=== PATIENT | female | born 1930 | race Caucasian/White ===

== ENCOUNTER → 2016-12-17 | Day surgery (SDC) | payer MEDICARE ==
[~2016-12-17] VITALS: Ht 157.5 cm; Wt 60.1 kg
[~2016-12-17] MED LIST: ARTHTAB5 PO; CALTTAB10 PO; CEPH-459 PO; CHLORHEXIDINE GLUCONATE 2 % 1 PACK (2 CLOTHS) TOPICAL PRN; DO NOT ADM ANY ANTICOAGULANT DRUGS PRN; FLOR250C PO; INSULIN HUMAN REGULAR 1,000 UNITS/10 ML VIAL SQ PRN; IOHEXOL 350 MG/ML 50 ML BTL (for RAD DIAG) ONE; LACTATED RINGER'S 1000 ML IV PRN; LEVO.025 PO; LYRI100C PO; METOPROLOL TARTRATE 25 MG TAB PO PRN; ONDANSETRON HCL 4 MG/2 ML VIAL IV PUSH PRN; POVIDONE IODINE 5% (ANTISEPSIS KIT) 4 APPLICATIONS EACH NARE PRN; PREG100 PO; PROPOFOL 200 MG/20 ML AMP IV ONE; SIMV20TA PO; SODIUM CHLORID 0.9% 500 ML IV PRN; SYNT25TA PO; WARF1TAB PO; WARF4TAB52 PO; [UNRECOGNIZED DRUG - CODE]; ceFAZolin 1,000 MG/NS 100 ML IV SCH; ePHEDrine/NS 25 MG/5 ML SYR IV ONE; oxyCODONE/ACETAMINOPHEN 5 MG/325 MG TAB PO PRN
[2016-12-17 08:40] VITALS: BP 165/69; PULSE 79; RESP 20; TEMP 98.8; O2SAT 96
[2016-12-17 09:00] LABS: HEMATOCRIT 40.5 % (35.0-46.0); MEAN CORPUSCULAR HEMOGLOBIN 29.3 PG (27.0-34.0); MEAN CORPUSCULAR HGB CONC 32.6 % (32.0-36.0); PLATELET COUNT 232 TH/MM3 (150-450); RED CELL DISTRIBUTION WIDTH 14.6 % (11.6-17.2); WHITE BLOOD COUNT 5.2 TH/MM3 (4.0-11.0)
[2016-12-17 09:01] LABS: HEMO FLAGS AUTO DIFF
[2016-12-17 09:42] LABS: EOSINOPHILS 4 % (0-4); NEUTROPHIL # MANUAL DIFF 3.3 TH/MM3 (1.8-7.7); PLATELET ESTIMATE SMEAR NORMAL (NORMAL); PLATELET MORPHOLOGY NORMAL (NORMAL); POLYS (SEG NEUTROPHILS) 63 % (16-70); SCAN/DIFF FINAL DIFF MANUAL; WBC DIFF SAMPLE 100
[2016-12-17 10:24] LABS: INTERNATIONAL NORMALIZED RATIO 1.1 RATIO
--- NOTE | 2016-12-17 11:46 | PD.OP ---
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 Procedure in detail: Patient was brought to the operating room suite and placed supine on the cystoscopy table. She was then placed under general anesthesia. She was then repositioned in the dorsolithotomy position and prepped and draped in normal sterile fashion. After appropriate timeout was undertaken I proceeded with cystoscopic evaluation utilizing the rigid cystoscope with the 30 lens a 20 Icelandic sheath. The right orifice was in correct anatomic position effluxing clear urine. The left orifice had the left ureteral stent protruding from it. There were no bladder mucosal lesions, calculi or diverticula formation. The left stent was grasped with flexible forceps and easily removed. Next a sensor 0.035 wire was easily advanced up the left ureter under fluoroscopic guidance. A 6 [place]ic open-ended ureteral catheter was then advanced over the wire and the wire withdrawn. A left retrograde study was performed to outline the collecting system. Guidewire was introduced through the open-ended catheter and this was exchanged for a 22 cm 6 [place]ic terminal operations manager [place] stent. Once the stent was in proper position the trailing string was removed. There was small amount of bloody urine noted occlusion of the procedure thus decision was made to pass a Carroll catheter. A 16 Icelandic 10 cc Carroll catheter was easily placed and connected to gravity drainage. The patient tolerated the procedures without, patient's was transferred to the PACU in satisfactory condition. Sanjay Gonzalez MD Dec 17, 2016 11:46
[2016-12-17 13:10] VITALS: BP 139/59; PULSE 80; RESP 18; TEMP 98; O2SAT 96
== END | disposition home or self-care (01) ==
LOC: HSDC 07:56
PROVIDERS: ATTEND Urology
DX: N13.5 Crossing vessel and stricture of ureter without hydronephrosis (principal); I10 Essential (primary) hypertension; J45.909 Unspecified asthma, uncomplicated; M81.0 Age-related osteoporosis without current pathological fracture; E03.9 Hypothyroidism, unspecified; Z86.73 Personal history of transient ischemic attack (TIA), and cerebral infarction without residual deficits; Z86.711 Personal history of pulmonary embolism; Z85.3 Personal history of malignant neoplasm of breast; Z85.43 Personal history of malignant neoplasm of ovary
CPT/HCPCS: 52332; 74420; 85007; 85027; 85610; C1769; J3010; Q9967

== ENCOUNTER → 2017-11-18 | Day surgery (SDC) | payer MEDICARE ==
[~2017-11-18] VITALS: Ht 157.5 cm; Wt 60.3 kg
[~2017-11-18] MED LIST changes: -ARTHTAB5 PO; -CALTTAB10 PO; +DEXAMETHASONE SOD PHOS 4 MG/ML VIAL IV ONE; -FLOR250C PO; -INSULIN HUMAN REGULAR 1,000 UNITS/10 ML VIAL SQ PRN; -IOHEXOL 350 MG/ML 50 ML BTL (for RAD DIAG) ONE; -LEVO.025 PO; +LIDOCAINE HCL 1% PF 5 ML SYRINGE OTHER ONE; +ONDANSETRON HCL 4 MG/2 ML VIAL IV ONE; -PREG100 PO; -PROPOFOL 200 MG/20 ML AMP IV ONE; -WARF1TAB PO; +ceFAZolin INJ 1,000 MG VIAL IV ONE; -ePHEDrine/NS 25 MG/5 ML SYR IV ONE; +ePHEDrine/NS 25 MG/5 ML SYRINGE IV ONE
[2017-11-18 11:39] LABS: AUTOMATED NEUTROPHIL # 3.2 TH/MM3 (1.8-7.7); BASOPHIL % 0.7 % (0.0-2.0); EOSINOPHIL # 0.1 TH/MM3 (0-0.4); EOSINOPHIL % 2.4 % (0.0-4.0); HEMATOCRIT 40.6 % (35.0-46.0); HEMOGLOBIN 13.6 GM/DL (11.6-15.3); LYMPH % 28.9 % (9.0-44.0); LYMPHOCYTE # 1.5 TH/MM3 (1.0-4.8); MEAN CELL VOLUME 90.7 FL (80.0-100.0); MEAN CORPUSCULAR HEMOGLOBIN 30.5 PG (27.0-34.0); MEAN CORPUSCULAR HGB CONC 33.6 % (32.0-36.0); MEAN PLATELET VOLUME 8.2 FL (7.0-11.0); MONO % 6.9 % (0.0-8.0); MONOCYTE # 0.4 TH/MM3 (0-0.9); NEUT % 61.1 % (16.0-70.0); PLATELET COUNT 220 TH/MM3 (150-450); RED BLOOD COUNT 4.47 MIL/MM3 (4.00-5.30); RED CELL DISTRIBUTION WIDTH 13.6 % (11.6-17.2); WHITE BLOOD COUNT 5.2 TH/MM3 (4.0-11.0)
--- NOTE | 2017-11-18 12:35 | PD.OP ---
Operative Report Date of Surgery: November 18, 2017 Preoperative Diagnosis: (1) Ureteral obstruction, left Postoperative Diagnosis: (1) Ureteral obstruction, left Procedure: Cystoscopy, left retrograde pyelogram and left ureteral stent exchange Anesthesia: General Surgeon: Sanjay Gonzalez Bending Roll Hand(s): None Operation and Findings: Indication for procedures: Case of a pleasant 87-year-old female with history chronic left ureteral obstruction who status post Boari flap reconstruction who presents now for her annual stent exchange. Patient reports that her present stent has not given her any problems over the past year. Operative procedure in detail: Patient was brought to the operating room suite placed supine on the cystoscopy table. She was then placed under general anesthesia. She was then repositioned in the dorsolithotomy position and prepped and draped in normal sterile fashion. After an appropriate timeout was undertaken I proceeded with cystoscopic evaluation. Initially the rigid cystoscope with the 20 Vietnamese sheath and obturator was gently inserted without difficulty. The obturator was then exchanged for the 30 lens. The previously placed left ureteral stent could be seen protruding from the newly created left ureteral orifice. I then proceeded to pass a sensor 0.035 wire alongside the stent under fluoroscopic guidance. The wire was fully advanced up into the left renal pelvis. Next a flexible grasper was utilized and the left stent removed. A 6 Vietnamese open-ended catheter was then advanced through the cystoscope and the previously placed wire was backloaded. The open-ended catheter was advanced approximately 20 cm in a cephalad direction and the wire was withdrawn. A retrograde pyelogram study was then performed to outline the collecting system. The open-ended catheter was then exchanged for an [place] 6 Vietnamese 22 cm stent which was placed on the both cystoscopic and fluoroscopic guidance without difficulty. This was the same type of stent that the patient had a prior year. The bladder was then drained of all irrigant fluid and cystoscope was withdrawn. The patient tolerated the procedures without complications and was transferred to the PACU in satisfactory condition. Sajnay Gonzalez MD November 18, 2017 12:35
[2017-11-18 13:47] VITALS: BP 161/65; PULSE 71; RESP 16; TEMP 97.9; O2SAT 96
--- NOTE | 2017-11-19 14:54 | EKG ---
Date Performed: 11/18/2017 Time Performed: 10:43:18 PTAGE: 87 years EKG: Sinus rhythm WITH OCCASIONAL SUPRAVENTRICULAR PREMATURE COMPLEXES BORDERLINE ECG PREVIOUS TRACING : 12/19/2015 13.30 DOCTOR: Norman Zhao Interpretating Date/Time 11/19/2017 14:54:00
== END | disposition home or self-care (01) ==
LOC: HSDC 09:54
PROVIDERS: ATTEND Urology
DX: N13.5 Crossing vessel and stricture of ureter without hydronephrosis (principal); I10 Essential (primary) hypertension
CPT/HCPCS: 00910; 52332; 74420; 85025; 93005; C1769; J0690; J1100; J2405; J3010